=== PATIENT | female | born 1970 | race Caucasian/White ===

== ENCOUNTER 2025-03-01 13:41 | Emergency (ER) | payer BC ==
[~2025-03-01] VITALS: Ht 152.4 cm; Wt 113.4 kg
[2025-03-01 13:41] VITALS: BP 160/98; PULSE 94; RESP 18; TEMP 98.3; O2SAT 95
[2025-03-01] MEDS ORDERED: AMOX1TAB12 PO (14:03)
[2025-03-01] MEDS ORDERED: AUGMENTIN 875MG ONE (14:05)
[2025-03-01] MEDS ORDERED: ADACEL IM ONE (14:05)
[2025-03-01] MEDS: AUGMENTIN 875MG PO STA (14:13)
[2025-03-01] MEDS: ADACEL IM ONE (14:15)
== END 2025-03-01 14:35 | disposition home or self-care (01) ==
LOC: ER 13:41
DX: S91.332A Puncture wound without foreign body, left foot, initial encounter (principal); W45.0XXA Nail entering through skin, initial encounter; Y93.89 Activity, other specified; Y92.89 Other specified places as the place of occurrence of the external cause; Y99.8 Other external cause status
CPT/HCPCS: 90471; 90715; 99284; 73630-LT